=== PATIENT | male | born 1975 | race Caucasian/White ===

== ENCOUNTER 2016-07-28 18:19 | Emergency (ER) | payer BC ==
[2016-07-28 19:02] LABS: % IMMATURE GRANULYOCYTES 0.6 % (0.0-1.1); ABSOLUTE IMMATURE GRANULOCYTES 0.05 10^3/uL (0.00-0.10); ADD DIFF? NO; ADD MORPH? NO; ADD SCAN? NO; ATYPICAL LYMPHOCYTE FLAG 0 (0-99); FRAGMENT RBC FLAG 0 (0-99); HEMOGLOBIN 16.1 g/dL (13.7-17.5); LEFT SHIFT FLG 0 (0-99); LIPEMIA HEMOLYSIS FLAG 90 (0-99); MEAN CELL HEMOGLOBIN 31.3 pg (27.9-34.1); MEAN CELL HEMOGLOBIN CONCENTR. 34.3 g/dL (32.4-36.7); MEAN CELL VOLUME 91.4 fL (81.5-99.8); MEAN PLATELET VOLUME 10.3 fL (8.7-11.7); PLATELET CLUMPS FLAG 40 (0-99); PLATELET COUNT 268 10^3/uL (150-400); RED BLOOD CELL COUNT 5.14 10^6/uL (4.40-6.38); RED CELL DISTRIBUTION WIDTH 14.4 % (11.5-15.2)
--- NOTE | 2016-07-28 19:03 | EDPHY ---
H & P Source: Patient Exam Limitations: No limitations HPI/ROS: CHIEF COMPLAINT: M1, suicidal ideation HISTORY OF PRESENT ILLNESS: Patient is here from [employer] through completed an M1 form due to reports of the patient being suicidal. They documented that the patient admitted to them on night that he [place]. The patient says that he may have set this but he was so intoxicated he does not recall up. He was administered Librium at the police department with his last dose this morning. At this time he has no thoughts of suicide. He does not want to hurt himself at all. He does admit to going through divorce at this time. He admits to driving out here from [place] "to get away from things for a while." He adamantly denies suicidal ideation, homicidal ideation. He had no plan of how he wanted to harm himself previous to become intoxicated. He says that he was drinking heavily on , drove to a fast food restaurant, and then remembers getting arrested. No other associated complaints or modifying factors. PSYCHIATRIC DIAGNOSES: Previous suicide attempt several years ago. Alcoholic with frequent rehabilitation PRIOR PSYCHIATRIC EVALUATIONS: Suicide attempt several years ago M1/DETAINER: [facility] [employer], 2:54 a.m. July 28 REVIEW OF SYSTEMS: Ten systems reviewed and are negative unless otherwise noted in the HPI EXAMINATION General Appearance: Alert, no distress Head: normocephalic, atraumatic Eyes: Pupils equal and round, no conjunctival pallor or injection ENT, Mouth: Mucous membranes moist Neck: Normal inspection, supple, non-tender Respiratory: Lungs are clear to auscultation. No wheezing, rhonchi or crackles. Cardiovascular: Regular rate and rhythm. No murmur. Gastrointestinal: Abdomen is soft and nontender Back: non-tender, no bony abnormalities Neurological: A&O, nonfocal, normal gait Skin: Warm and dry, no rash Extremities: Nontender, no pedal edema Psychiatric: Mood and affect normal. Denies suicidal ideation. Admits to alcoholism DIFFERENTIAL DIAGNOSES: Including but not limited to suicidal ideation, alcoholism, acute intoxication, depression, bipolar disorder MDM: 7:00 p.m. Patient is here on an M1 from the police department due to reports of suicidal ideation. Patient denies this. He says that he was intoxicated when he said this. He informs me that he has no intention of self-harm. Laboratory studies have been ordered. Proceed with psychiatric evaluation. 7:42 p.m. Laboratory studies are all within normal limits. At this time he is medically cleared for psychiatric evaluation. 8:40 p.m. Patient remains calm and cooperative. Still awaiting evaluation by [facility]. 12:09 a.m. Updated by mental health professional dated. He says that the patient is currently being evaluated for placement at [facility]. He does agree the patient needs inpatient evaluation criteria. 1:05 a.m. I discussed the case with Dr. Anne. At this time he will assume care of the patient. Please see his note for final disposition. He is currently awaiting placement for inpatient psychiatric care. He is on an M1 hold from the [facility]. SUPERVISION: Patient was evaluated in conjunction with the supervising physician. Please see their note for details. (Jesus Silver) Constitutional: Initial Vital Signs Temperature (C) 36.6 C 07/28/16 18:19 Heart Rate 113 H 07/28/16 18:19 Respiratory Rate 16 07/28/16 18:19 Blood Pressure 142/109 H 07/28/16 18:19 O2 Sat (%) 94 07/28/16 18:19 O2 Delivery Mode Room Air Allergies/Adverse Reactions: aspirin Allergy (Verified 07/28/16 18:26) Home Medications: Medication Instructions Recorded Hydroxyzine Pamoate 07/28/16 Omeprazole 07/28/16 Zoloft 100mg (*) 07/28/16 Medical Decision Making ED Course/Re-evaluation: 0325AM: Patient has been accepted at [facility]. Dr. Roblero. Emtala filled out. Patient will be appropriately transfered. (Alexander Anne) Other Provider: PHYSICIAN DOCUMENTATION: The patient was evaluated and managed by the Physician Curriculum Developer and myself. I have reviewed the chart and agree with the findings and plan of care as documented. In addition, I examined the patient myself at 2210. History confirmed as going through divorce, previous history depression and alcohol. Physical findings as follows: Alert, cooperative, normally conversant. Discussed with hand tacker at 2258, plan for inpatient psychiatric hospitalization. Signed out to Dayana at 11:00 p.m.. I am the secondary supervising physician. (Tanvir Davison) - Data Points Laboratory Results: Laboratory Results 07/28/16 18:55 07/28/16 18:55 07/28/16 07/28/16 07/28/16 18:55 18:55 18:30 WBC 7.77 10^3/uL 10^3/uL (3.80-9.50) RBC 5.14 10^6/uL 10^6/uL (4.40-6.38) Hgb 16.1 g/dL g/dL (13.7-17.5) Hct 47.0 % % (40.0-51.0) MCV 91.4 fL fL (81.5-99.8) MCH 31.3 pg pg (27.9-34.1) MCHC 34.3 g/dL g/dL (32.4-36.7) RDW 14.4 % % (11.5-15.2) Plt Count 268 10^3/uL 10^3/uL (150-400) MPV 10.3 fL fL (8.7-11.7) Neut % (Auto) 72.7 % % (39.3-74.2) Lymph % (Auto) 15.4 % % (15.0-45.0) [place]arton % (Auto) 9.3 % % (4.5-13.0) Eos % (Auto) 1.4 % % (0.6-7.6) Baso % (Auto) 0.6 % % (0.3-1.7) Nucleat RBC Rel Count 0.0 % % (0.0-0.2) Absolute Neuts (auto) 5.64 10^3/uL 10^3/uL (1.70-6.50) Absolute Lymphs (auto) 1.20 10^3/uL 10^3/uL (1.00-3.00) Absolute Monos (auto) 0.72 10^3/uL 10^3/uL (0.30-0.80) Absolute Eos (auto) 0.11 10^3/uL 10^3/uL (0.03-0.40) Absolute Basos (auto) 0.05 10^3/uL 10^3/uL (0.02-0.10) Absolute Nucleated RBC 0.00 10^3/uL 10^3/uL (0-0.01) Immature Gran % 0.6 % % (0.0-1.1) Immature Gran # 0.05 10^3/uL 10^3/uL (0.00-0.10) Sodium 135 mEq/L mEq/L (134-144) Potassium 4.0 mEq/L mEq/L (3.5-5.2) Chloride 99 mEq/L mEq/L (97-110) Carbon Dioxide 24 mEq/l mEq/l (22-31) Anion Gap 12 mEq/L mEq/L (8-16) BUN 9 mg/dL mg/dL (7-23) Creatinine 0.7 mg/dL mg/dL (0.7-1.3) Estimated GFR > 60 Glucose 82 mg/dL mg/dL (70-100) Calcium 10.8 mg/dL H mg/dL (8.5-10.4) Phosphorus 2.7 mg/dL mg/dL (2.5-4.5) Salicylates < 1.0 mg/dL L mg/dL (2.0-20.0) Urine Opiates Screen NEGATIVE (NEGATIVE) Acetaminophen < 10 mcg/mL L mcg/mL (10.0-30.0) Urine Barbiturates NEGATIVE (NEGATIVE) Ur Phencyclidine Scrn NEGATIVE (NEGATIVE) Ur Amphetamine Screen NEGATIVE (NEGATIVE) U Benzodiazepines Scrn NON-NEGATIVE H (NEGATIVE) Urine Cocaine Screen NEGATIVE (NEGATIVE) U Marijuana (THC) Screen NEGATIVE (NEGATIVE) Ethyl Alcohol < 10 mg/dL mg/dL (0-10) Departure - Departure Disposition: Other Psych, Not [facility] Clinical Impression: Suicidal ideation, Severe major depression Condition: Fair Referrals: [facility] [Other] - As per Instructions
[2016-07-28 19:37] LABS: ANION GAP 12 mEq/L (8-16); CALCIUM 10.8 mg/dL (8.5-10.4); CARBON DIOXIDE 24 mEq/l (22-31); CHLORIDE 99 mEq/L (97-110); CREATININE 0.7 mg/dL (0.7-1.3); ETHANOL SERUM < 10 mg/dL (0-10); GLOMERULAR FILTRATION RATE > 60; GLUCOSE 82 mg/dL (70-100); SALICYLATE < 1.0 mg/dL (2.0-20.0); SODIUM 135 mEq/L (134-144)
[2016-07-29 04:26] VITALS: BP 141/78; PULSE 81; RESP 18; TEMP 98.1; O2SAT 94
== END 2016-07-29 04:26 ==
DX: R45.851 Suicidal ideations (principal); F32.2 Major depressive disorder, single episode, severe without psychotic features
CPT/HCPCS: 80305; G0480